=== PATIENT | male | born 1990 | race Hispanic/Latino ===

== ENCOUNTER 2024-10-09 15:13 | Emergency (ER) | payer SELFPAY ==
[2024-10-09] MEDS ORDERED: Lidocaine 1% PF 5 ML VIAL ONE (16:47)
[2024-10-09] MEDS ORDERED: Ketorolac Tromethamine 30 MG (1 mL) VIAL ONE (17:19)
== END 2024-10-09 17:34 | disposition home or self-care (01) ==
LOC: ERS 15:13
DX: M25.461 Effusion, right knee (principal); X50.1XXA Overexertion from prolonged static or awkward postures, initial encounter
CPT/HCPCS: 20610; 96372; J1885